=== PATIENT | female | born 1955 | race Caucasian/White ===

== ENCOUNTER 2018-09-21 19:25 | Inpatient (IN) | payer MEDICARE, OTHER ==
--- NOTE | 2018-09-21 20:39 | ED Physician Chart ---
ED Chief Complaint/HPI - Patient Information Date Seen:: 09/21/18 Time Seen:: 20:36 Chief Complaint:: agitation History of Present Illness:: 63 yr old bf from [facility] with esrd htn gerd gen weakness with agiation Allergies:: Allergies Allergy/AdvReac Type Severity Reaction Status Date / Time chocolate flavor Allergy Verified 09/21/18 20:33 Penicillins [PCN] Allergy Verified 09/21/18 20:33 ED Review of Systems - Review of Systems General/Constitutional: No fever, No chills, No weight loss, No weakness, No diaphoresis, No edema, No loss of appetite Skin: No skin lesions, No rash, No bruising Head: No headache, No light-headedness Eyes: No loss of vision, No pain, No diplopia ENT: No earache, No nasal drainage, No sore throat, No tinnitus Neck: No neck pain, No swelling, No thyromegaly, No stiffness, No mass noted Cardio Vascular: No chest pain, No palpitations, No PND, No orthopnea, No edema Pulmonary: No SOB, No cough, No sputum, No wheezing GI: No nausea, No vomiting, No diarrhea, No pain, No melena, No hematochezia, No constipation, No hematemesis G/U: No dysuria, No frequency, No hematuria Musculoskeletal: No bone or joint pain, No back pain, No muscle pain Endocrine: No polyuria, No polydipsia Psychiatric: No prior psych history, No depression, No anxiety, No suicidal ideation Hematopoietic: No bruising, No lymphadenopathy Allergic/Immuno: No urticaria, No angioedema Neurological: No syncope, No focal symptoms, No weakness, No paresthesia, No headache, No seizure, No dizziness, No confusion, No vertigo ED Past Medical History - Past Medical History Past Medical History: HTN, PUD/GERD, ESRD ED Physical Exam - Physical Examination General/Constitutional: Awake, Well-developed, well-nourished, Alert, No distress, GCS 15, Non-toxic appearing, Ambulatory Head: Atraumatic Eyes: Lids, conjuctiva normal, PERRL, EOMI Skin: Nl inspection, No rash, No skin lesions, No ecchymosis, Well hydrated, No lymphadenopathy ENMT: External ears, nose nl, Nasal exam nl, Lips, teeth, gums nl Neck: Nontender, Full ROM w/o pain, No JVD, No nuchal rigidity, No bruit, No mass, No stridor Respiratory: Nl effort/Exclusion, Clear to Auscultation, No Wheeze/Rhonchi/Rales Cardio Vascular: RRR, No murmur, gallop, rubs, NL S1 S2 GI: No tenderness/rebounding/guarding, No organomegaly, No hernia, Normal BS's, Nondistended, No mass/bruits, No McBurney tenderness : No CVA tenderness Extremities: No tenderness or effusion, Full ROM, normal strength in all extremities, No edema, Normal digits & nails Neuro/Psych: Alert/oriented, DTR's symmetric, Normal sensory exam, Normal motor strength, Judgement/insight normal, Mood normal, Normal gait, No focal deficits Misc: Normal back, No paraspinal tenderness ED Assessment - Assessment General Assessment: psychosis agitation for aleida psych eval ED Septic Shock - . Is Septic Shock (SBP<90, OR Lactate>4 mmol\L) present?: No ED Reassessment (Disposition) - Reassessment Reassessment:: agitation psychosis - Diagnosis Diagnosis:: as above - Patient Disposition Discharge/Transfer:: Acute Care w/in this hosp Admitted to:: Med/Surg Condition at Disposition:: Stable
[2018-09-21 20:55] LABS: % BASOPHILS 0.6 % (0.0-2.0); % LYMPHOCYTES 26.9 % (20.0-50.0); % MONOCYTES 4.1 % (2.0-10.0); % NEUTROPHILS 63.4 % (40.0-80.0); BASOPHILE ABSOLUTE 0.1 Th/cumm (0-0.2); EOSINOPHILE ABSOLUTE 0.5 Th/cmm (0.1-0.4); HEMATOCRIT 41.7 % (41.0-60); HEMOGLOBIN 13.4 gm/dL (12-16); LYMPHOCYTE ABSOLUTE 2.6 Th/cmm (1.5-3.0); MEAN CELL VOLUME 91.3 fl (81-100); MEAN CORPUSCULAR HEMOGLOBIN 29.4 pg (27.0-31.0); MEAN CORPUSCULAR HGB CONC 32.2 pg (28.0-36.0); MEAN PLATELET VOLUME 7.3 fl; MONOCYTE ABSOLUTE 0.4 Th/cmm (0.3-1.0); NEUTROPHILE ABSOLUTE 6.1 Th/cmm (1.8-8.0); PLATELET COUNT 434 Th/cmm (150-400); RED BLOOD COUNT 4.56 Mil/cmm (3.80-5.10); RED CELL DISTRIBUTION WIDTH 13.3 % (11.5-20.0); WHITE BLOOD COUNT 9.7 Th/cmm (4.8-10.8)
[2018-09-21 21:09] LABS: ALB/GLOB RATIO 1.1 (1.0-1.8); ALBUMIN 3.8 gm/dL (3.7-5.3); ALKALINE PHOSPHATASE 74 U/L (34-104); ANION GAP 12.4 (7.0-16.0); BILIRUBIN,TOTAL 0.4 mg/dL (0.3-1.0); BUN - UREA NITROGEN 15 mg/dL (7-25); CALCIUM SERUM 9.5 mg/dL (8.6-10.3); CHLORIDE 103 mEq/L (98-107); CREATININE - SERUM 0.7 mg/dL (0.6-1.2); GFR AFRICAN-AMERICAN > 60.0 ml/min (>90); GFR NON AFRICAN-AMERICAN > 60.0 ml/min; GLUCOSE 224 mg/dL (70-105); POTASSIUM SERUM 3.4 mEq/L (3.5-5.1); SGOT 15 U/L (13-39); SGPT/ALT 19 U/L (7-52); SODIUM SERUM 139 mEq/L (136-145); TOTAL PROTEIN,SERUM 7.4 gm/dL (6.0-8.3)
[2018-09-21] MEDS ORDERED: Potassium Chloride 20 mEq ER Tab PO ONE ×2 (21:57→22:03)
[2018-09-21 23:13] VITALS: BP 146/78
[2018-09-21] MEDS ORDERED: Magnesium Hydroxide (MOM) 30 mL UDC PO PRN (23:52)
[2018-09-21] MEDS ORDERED: Promethazine DM 6.25/15mg-5mL 5 ML SYR PO PRN (23:52)
[2018-09-22] MEDS ORDERED: GLUCAGON HCl 1 MG KIT IM PRN (00:54)
[2018-09-22] MEDS ORDERED: Dextrose 50% 50 mL Abboject IVP PRN (00:54)
[2018-09-22] MEDS: INSULIN LISPRO SLIDING SCALE 100 UNITS/ML UNIT SUBQ SCH ×2 (06:37→16:57)
[2018-09-22] MEDS: Pantoprazole 40 mg EC Tab PO SCH (06:38)
[2018-09-22 08:11] LABS: CHOLESTEROL 191 mg/dL (<200); HDL -HIGH DENSITY LIPOPROTEIN 42 mg/dL (23-92); TRIGLYCERIDES 88 mg/dL (<150)
[2018-09-22] MEDS: Multivitamin w/ Minerals Tab PO SCH (08:30)
[2018-09-22] MEDS: Aspirin 81mg Chewable Tab PO SCH (08:31)
--- NOTE | 2018-09-23 00:54 | Psychiatric Evaluation ---
DATE OF SERVICE: 09/21/2018 IDENTIFYING DATA: The patient is a 63-year-old -[place] woman, resident of [facility]. Information obtained directly interviewing the patient as well as reviewing the admission papers. CHIEF COMPLAINT: "I don't know why they brought me in here. I need to go back". HISTORY OF PRESENT ILLNESS: This patient is a 63-year-old woman reported to have been very depressed and getting easily irritable and angry. During the interview, the patient has been doing the same thing. The patient is not providing much of information stating that there is no reason for me to talk to her and then I need to get her back to the facility right away. PAST PSYCHIATRIC HISTORY: Details are not known. MEDICAL AND PHYSICAL EXAMINATION: Requested to be done by Dr. Hurtado. SUBSTANCE ABUSE HISTORY: None. PHYSICAL OR SEXUAL ABUSE HISTORY: None. LEGAL PROBLEMS: None at this time. MENTAL STATUS EXAMINATION: The patient is a 63-year-old, looking her stated age, superficially cooperative. Eye contact is poor. Mood is noted to be irritable. Affect is constricted. Insight and judgment at this time are noted to still impaired. Impulse control is noted to be limited. Coping skills are noted to be limited. The patient has been having difficult time to cope with the stress. The patient has been having feelings of frustration. The patient has not been able to contract for safety at this time. The patient denies active hallucinations or delusions are noted. DIAGNOSTIC IMPRESSION: AXIS I: Major depressive disorder, first episode and moderate. AXIS II: None. AXIS III: As per Dr. Hurtado. IMMEDIATE TREATMENT PLAN: The patient is going to be observed on inpatient unit, provided with supportive psychotherapy. The patient is going to be closely monitored. I encouraged to verbalize the concerns rather than to act out. Once stabilized, the patient is going to be discharged to [facility] to be followed up on an outpatient basis. [facility]# [id number]
--- NOTE | 2018-09-23 03:43 | History & Physical ---
ADMIT DATE: 09/22/2018 REASON FOR ADMISSION: Psychiatric disorder. HISTORY OF PRESENT ILLNESS: This is a 63-year-old female with underlying history of diabetes, hypertension, GERD, dementia and mental disorder admitted to the [facility] for underlying psychiatric illnesses by Dr. Borjas. Dr. Borjas requested medical H and P on this patient. The patient denies any current medical complaints or concerns. PAST MEDICAL HISTORY: As per HPI. PAST SURGICAL HISTORY: No significant past surgeries reported. FAMILY HISTORY: Unknown. SOCIAL HISTORY: The patient ____. No reported alcohol, tobacco or street drug use. CURRENT MEDICATIONS: As per medication reconciliation. ALLERGIES: PENICILLIN. REVIEW OF SYSTEMS: As per HPI, 12-point system is negative. PHYSICAL EXAMINATION: VITAL SIGNS: Temperature 97.1, pulse 90, respiration 19, blood pressure 128/93 and O2 97% on room air. Pain 0/10. HEENT: Unremarkable. HEART: S1 and S2 normal. LUNGS: Clear to auscultation bilaterally. ABDOMEN: Soft and nontender. No guarding. NEUROLOGIC: ____. AVAILABLE LABORATORY DATA: Reviewed. ASSESSMENT: 1. Diabetes. 2. Hypertension. 3. Gastroesophageal reflux disease. 4. Dementia. 5. Diabetes mellitus. PLAN: Monitor blood sugars. Continue diabetic medications. Losartan and Coreg will be given. Monitor blood pressure. Continue blood pressure medications. Psych management per psychiatrist. The patient is medically stable to proceed to [facility]. Thank you Dr. Borjas for allowing us to participate in the care of this patient. [facility]# [id number]
[2018-09-23] MEDS: Pantoprazole 40 mg EC Tab PO SCH (06:38)
[2018-09-23] MEDS: INSULIN LISPRO SLIDING SCALE 100 UNITS/ML UNIT SUBQ SCH ×2 (06:49→16:37)
[2018-09-23] MEDS: Multivitamin w/ Minerals Tab PO SCH (08:46)
[2018-09-23] MEDS: Aspirin 81mg Chewable Tab PO SCH (08:46)
--- NOTE | 2018-09-24 02:44 | Progress Notes ---
DATE: 09/23/2018 SUBJECTIVE: Staff was spoken to. The patient is interviewed. Mood is noted to be irritable. Affect is constricted. Insight and judgment are noted to be still impaired. Impulse control is noted to be poor. The patient is screaming and yelling, stating that she should not be in here. She should be back to her facility. The patient has been placed on low-dose of an antidepressant medication Seroquel. ASSESSMENT: The patient is still impulsive. PLAN: To continue the patient with supportive therapy. I encouraged the patient to verbalize the concerns rather than to act out. [facility]# [id number]
[2018-09-24] MEDS: Pantoprazole 40 mg EC Tab PO SCH (06:57)
[2018-09-24] MEDS: INSULIN LISPRO SLIDING SCALE 100 UNITS/ML UNIT SUBQ SCH ×2 (07:00→17:08)
[2018-09-24] MEDS: Escitalopram Oxalate 5 mg Tab PO SCH (08:38)
[2018-09-24] MEDS: Aspirin 81mg Chewable Tab PO SCH (08:38)
[2018-09-24] MEDS: Multivitamin w/ Minerals Tab PO SCH (08:38)
--- NOTE | 2018-09-24 23:29 | Progress Notes ---
DATE: 09/24/2018 SUBJECTIVE: Staff was spoken to. The patient is interviewed. Mood is noted to be irritable. Affect is constricted. Insight and judgment are noted to be still impaired. Impulse control is noted to be poor. The patient is getting easily frustrated and agitated. The patient is currently on escitalopram 5 mg in the morning and Seroquel is being given at 12.5 mg. PLAN: To increase the dose on the Seroquel to 25 mg at bedtime and continue the Lexapro and follow the patient with the supportive therapy. Please note that the patient is not ready to be discharged to a lower level of care yet. JOB# [id number]
[2018-09-25] MEDS: INSULIN LISPRO SLIDING SCALE 100 UNITS/ML UNIT SUBQ SCH ×2 (06:40→17:16)
[2018-09-25] MEDS: Pantoprazole 40 mg EC Tab PO SCH (06:46)
[2018-09-25] MEDS: Escitalopram Oxalate 5 mg Tab PO SCH (08:42)
[2018-09-25] MEDS: Aspirin 81mg Chewable Tab PO SCH (08:43)
[2018-09-25] MEDS: Multivitamin w/ Minerals Tab PO SCH (08:43)
--- NOTE | 2018-09-25 08:55 | Consultation ---
DATE OF CONSULTATION: 09/23/2018 REFERRING PHYSICIAN: Lyndsey Redmond MD TYPE OF CONSULTATION: PSYCHOLOGY. HISTORY OF PRESENT ILLNESS: The patient is a 63-year-old female. The patient is a resident of [facility]. The following is by record review and by the patient's self-report. Upon interview, the patient states that she does not know why she is in the hospital and wants to return to her placement immediately. She is demanding discharge. The patient is getting easily irritated and angry. Staff at the patient's facility reports the patient had been very depressed as well as irritable and frustrated with poor redirectability. The patient is answering questions very minimally in a yes or no fashion and is easily frustrated. PAST MEDICAL HISTORY: Please see history and physical by Dr. Hurtado. PAST PSYCHIATRIC HISTORY: Records are unavailable. Details are unknown. SUBSTANCE ABUSE HISTORY: The patient declined to answer these questions. PSYCHOSOCIAL HISTORY: The patient did not answer the questions about occupational or educational history. The patient states that she is a Christian and that she is . The patient did not answer questions about whether she has any children. The patient states that her sister, Cyndi is involved in her care. The patient denied any history of physical or sexual abuse. The patient denies any current legal problems. The patient is demanding to return to her placement. MENTAL STATUS EXAMINATION: The patient appears to be her stated age. Attitude is superficially cooperative. Eye contact is poor. Speech is loud. Mood is irritable. Affect is constricted. Thought process shows to be confused. The patient denied any suicidal ideation, plan, or intention. She denies any auditory or visual hallucinations. The patient's behavior has been emotionally volatile on the unit and difficult to redirect. Impulse control is inadequate. Concentration is poor. The patient did not participate in the memory assessment. Sensorium is alert and oriented to self and place only. The patient did not participate in the interpretation of proverbs. Insight is poor and judgment is compromised. DIAGNOSTIC IMPRESSION: AXIS I: Major depressive disorder, first episode, moderate. AXIS II: Deferred. AXIS III: Per Dr. Hurtado. TREATMENT PLAN: The patient has been seen by Dr. Redmond for psychiatric evaluation and for the management of the patient's psychotropic medications. We will provide supportive psychotherapy to include de-escalation and conflict resolution as well as problem solving. We will encourage the patient to demonstrate emotional and self-regulation and to verbalize her concerns versus acting out verbally. We will provide cognitive behavioral therapy to reduce the patient's depression. We will provide coping strategies for phase of life issues. We will offer the patient the opportunity to verbally contract for safety as well. We will provide motivational enhancement for the patient to become compliant and stay compliant with all aspects of her care and treatment. We will follow up in 2 days to continue the present treatment. Thank you, Dr. Redmond for this consult and the opportunity to participate in this patient's care. JOB# [id number] IRIS
--- NOTE | 2018-09-26 01:34 | Progress Notes ---
DATE: 09/25/2018 PSYCHIATRIC PROGRESS NOTE SUBJECTIVE: Staff was spoken to. The patient is interviewed. Mood is noted to be irritable. Affect is constricted. Insight and judgment are noted to be still impaired. Impulse control is noted to be limited. Coping skills are also noted to be limited. The patient has been having poor coping skills and is stating there is nothing wrong with her, I need to send her back to the custodial facility. ASSESSMENT: The patient is still depressed and paranoid. PLAN: To continue the patient with the current medications. I encouraged the patient to verbalize the concerns rather than to act out. JOB# [id number]
[2018-09-26] MEDS: Pantoprazole 40 mg EC Tab PO SCH (06:50)
[2018-09-26] MEDS: INSULIN LISPRO SLIDING SCALE 100 UNITS/ML UNIT SUBQ SCH ×2 (06:55→16:48)
[2018-09-26] MEDS: Escitalopram Oxalate 5 mg Tab PO SCH (08:12)
[2018-09-26] MEDS: Multivitamin w/ Minerals Tab PO SCH (08:12)
[2018-09-26] MEDS: Aspirin 81mg Chewable Tab PO SCH (08:14)
--- NOTE | 2018-09-26 19:46 | Progress Notes ---
DATE: 09/26/2018 PSYCHOLOGY PROGRESS NOTE SUBJECTIVE: The patient is seen and is interviewed. Case is discussed with staff. The patient presents as loud and is demanding to be discharged. The patient states that she needs to see the psychiatrist and for him to discharge her immediately and that she cannot stand being in the hospital. Staff reports the patient's impulse control is poor and that the patient continues to have a poor appetite. The patient continued to state that there is nothing wrong with her. OBJECTIVE: Mood is irritable. Affect is broad and animated. Thought process shows to be confused. The patient denied any hallucinations or delusions. The patient's behavior has been intermittently compliant with her care. ASSESSMENT AND PLAN: The patient's depression persists. There is some paranoid ideation present. We provided reality orientation, differentiation and integration. We provided remotivation for the patient to become compliant and stay compliant with all aspects of her care and treatment. We provided coping strategies for phase of life issues as well as for chronic severe mental illness. We encouraged the patient to demonstrate emotional and self-regulation and to verbalize her concerns versus acting out. We will follow up in 2 days to continue the present treatment if the patient remains admitted on the unit. JOB# [id number] IRIS
--- NOTE | 2018-09-27 00:47 | Progress Notes ---
DATE: 09/26/2018 PSYCHIATRIC PROGRESS NOTE SUBJECTIVE: Staff was spoken to. The patient is interviewed. Mood is noted to be dysphoric. Insight and judgment are noted to be still impaired. Impulse control is noted to be limited. The patient is screaming and yelling and stating that she needs to be out of here. The patient's sleep is noted to be poor. The patient's coping skills are noted to be very poor. The patient has been closely monitored for her sugar, it is coming anywhere from 174-234. Rest of the labs are noted to be within normal limits except the potassium being low. ASSESSMENT: The patient is still depressed and impulsive. PLAN: To continue the patient with the supportive therapy and followup. [facility]# [id number]
[2018-09-27] MEDS: INSULIN LISPRO SLIDING SCALE 100 UNITS/ML UNIT SUBQ SCH ×2 (06:37→17:04)
[2018-09-27] MEDS: Pantoprazole 40 mg EC Tab PO SCH (06:54)
[2018-09-27] MEDS: Multivitamin w/ Minerals Tab PO SCH (09:12)
[2018-09-27] MEDS: Escitalopram Oxalate 5 mg Tab PO SCH (09:13)
[2018-09-27] MEDS: Aspirin 81mg Chewable Tab PO SCH (09:14)
--- NOTE | 2018-09-28 03:17 | Progress Notes ---
DATE: 09/27/2018 SUBJECTIVE: Staff was spoken to. The patient is interviewed. Mood is noted to be irritable. Affect is constricted. The patient has paranoia, but denies any command hallucinations. Insight and judgment are noted to be still impaired. The patient is getting easily frustrated, angry and upset. The patient is currently on escitalopram 5 mg, which is going to be increased to 10 mg in the morning and the patient is going to be continued on the Seroquel that she has been taking. ASSESSMENT: The patient is still having depression symptoms and insomnia. PLAN: To continue the patient with the supportive therapy. I encouraged the patient to verbalize the concerns rather than to act out. [facility]# [id number]
[2018-09-28] MEDS: INSULIN LISPRO SLIDING SCALE 100 UNITS/ML UNIT SUBQ SCH ×2 (06:39→17:14)
[2018-09-28] MEDS: Pantoprazole 40 mg EC Tab PO SCH (06:39)
[2018-09-28] MEDS: Aspirin 81mg Chewable Tab PO SCH (08:50)
[2018-09-28] MEDS: Multivitamin w/ Minerals Tab PO SCH (08:50)
--- NOTE | 2018-09-28 22:13 | General Progress Note ---
Objective - Results Result Diagrams: 09/21/18 20:40 09/21/18 20:40 Recent Labs: Laboratory Last Values WBC 9.7 Th/cmm (4.8-10.8) 09/21/18 20:40 RBC 4.56 Mil/cmm (3.80-5.10) 09/21/18 20:40 Hgb 13.4 gm/dL (12-16) 09/21/18 20:40 Hct 41.7 % (41.0-60) 09/21/18 20:40 MCV 91.3 fl (81-100) 09/21/18 20:40 MCH 29.4 pg (27.0-31.0) 09/21/18 20:40 MCHC Differential 32.2 pg (28.0-36.0) 09/21/18 20:40 RDW 13.3 % (11.5-20.0) 09/21/18 20:40 Plt Count 434 Th/cmm (150-400) H 09/21/18 20:40 MPV 7.3 fl 09/21/18 20:40 Neutrophils % 63.4 % (40.0-80.0) 09/21/18 20:40 Lymphocytes % 26.9 % (20.0-50.0) 09/21/18 20:40 Monocytes % 4.1 % (2.0-10.0) 09/21/18 20:40 Eosinophils % 5.0 % (0.0-5.0) 09/21/18 20:40 Basophils % 0.6 % (0.0-2.0) 09/21/18 20:40 Sodium 139 mEq/L (136-145) 09/21/18 20:40 Potassium 3.4 mEq/L (3.5-5.1) L 09/21/18 20:40 Chloride 103 mEq/L (98-107) 09/21/18 20:40 Carbon Dioxide 27.0 mEq/L (21.0-31.0) 09/21/18 20:40 Anion Gap 12.4 (7.0-16.0) 09/21/18 20:40 BUN 15 mg/dL (7-25) 09/21/18 20:40 Creatinine 0.7 mg/dL (0.6-1.2) 09/21/18 20:40 Est GFR ( Amer) > 60.0 ml/min (>90) 09/21/18 20:40 Est GFR (Non-Af Amer) > 60.0 ml/min 09/21/18 20:40 BUN/Creatinine Ratio 21.4 09/21/18 20:40 Glucose 224 mg/dL (70-105) H 09/21/18 20:40 POC Glucose 174 MG/DL (70 - 105) H 09/26/18 05:48 Calcium 9.5 mg/dL (8.6-10.3) 09/21/18 20:40 Total Bilirubin 0.4 mg/dL (0.3-1.0) 09/21/18 20:40 AST 15 U/L (13-39) 09/21/18 20:40 ALT 19 U/L (7-52) 09/21/18 20:40 Alkaline Phosphatase 74 U/L (34-104) 09/21/18 20:40 Total Protein 7.4 gm/dL (6.0-8.3) 09/21/18 20:40 Albumin 3.8 gm/dL (3.7-5.3) 09/21/18 20:40 Globulin 3.6 gm/dL 09/21/18 20:40 Albumin/Globulin Ratio 1.1 (1.0-1.8) 09/21/18 20:40 Triglycerides 88 mg/dL (<150) 09/21/18 20:40 Cholesterol 191 mg/dL (<200) 09/21/18 20:40 LDL Cholesterol Direct 135 mg/dL (75-193) 09/21/18 20:40 HDL Cholesterol 42 mg/dL (23-92) 09/21/18 20:40 TSH 1.38 uIU/ml (0.34-5.60) 09/21/18 20:40 RPR NONREACTIVE (NONREACTIVE) 09/21/18 20:40 - Physical Exam Vitals and I&O: Vital Signs Temp 97.6 F 09/28/18 20:00 Pulse 79 09/28/18 20:00 Resp 18 09/28/18 20:00 BP 138/91 09/28/18 20:00 Pulse Ox 99 09/28/18 20:00 Intake & Output 09/28/18 09/28/18 09/29/18 06:59 18:59 06:59 Intake Total 240 1200 Balance 240 1200 Intake: Oral 240 1200 Other: # Voids 2 # Bowel Movements 0 3 Active Medications: Current Medications Acetaminophen (Tylenol) 650 mg PO Q4HR PRN PRN Reason: Pain or Fever >101 Stop: 11/20/18 23:51 Ascorbic Acid (Vitamin C) 500 mg PO DAILY [facility] Stop: 11/21/18 08:59 Last Admin: 09/28/18 08:50 Dose: 500 mg Aspirin (Aspirin Chewable) 81 mg PO DAILY [facility] Stop: 11/21/18 08:59 Last Admin: 09/28/18 08:50 Dose: 81 mg Dextrose (D50w) 50 ml IVP PRN PRN PRN Reason: Blood Glucose less than 70 Stop: 11/21/18 00:53 Dextrose (Glutose 40%) 18.75 gm PO PRN PRN PRN Reason: Blood Glucose less than 70 Stop: 11/21/18 00:53 Donepezil HCl (Aricept) 5 mg PO HS [facility] Stop: 11/21/18 20:59 Last Admin: 09/28/18 20:18 Dose: 5 mg Escitalopram Oxalate (Lexapro) 10 mg PO DAILY [facility]; Protocol Stop: 11/27/18 08:59 Last Admin: 09/28/18 08:50 Dose: 10 mg Famotidine (Pepcid) 20 mg PO Q12HR [facility] Stop: 11/21/18 08:59 Last Admin: 09/28/18 20:18 Dose: 20 mg Glipizide (Glucotrol) 5 mg PO QAM [facility] Stop: 11/21/18 08:59 Last Admin: 09/28/18 08:50 Dose: 5 mg Glucagon (Glucagen) 1 mg IM PRN PRN PRN Reason: Blood Glucose less than 70 Stop: 11/21/18 00:53 Ibuprofen (Motrin) 400 mg PO Q6H PRN PRN Reason: Pain (Mild) Stop: 11/20/18 23:51 Insulin Human Lispro (Humalog Insulin Sliding Scale) 0 units SUBQ BIDAC [facility]; Protocol Stop: 11/21/18 07:29 Last Admin: 09/28/18 17:14 Dose: Not Given Lisinopril (Zestril) 2.5 mg PO DAILY [facility] Stop: 11/21/18 08:59 Last Admin: 09/28/18 08:52 Dose: 2.5 mg Lorazepam (Ativan) 0.5 mg PO Q4HR PRN; Protocol PRN Reason: Anxiety Stop: 10/21/18 23:12 Magnesium Hydroxide (Milk Of Magnesia) 30 ml PO DAILY PRN PRN Reason: Constipation Stop: 11/20/18 23:51 Metformin HCl (Glucophage) 500 mg PO BIDWM [facility] Stop: 11/21/18 07:59 Last Admin: 09/28/18 17:25 Dose: 500 mg Metoprolol Tartrate (Lopressor) 25 mg PO BID [facility] Stop: 11/21/18 08:59 Last Admin: 09/28/18 17:25 Dose: 25 mg Nitroglycerin (Nitrostat) 0.4 mg SL Q5MIN PRN PRN Reason: Chest Pain Stop: 11/20/18 23:51 Ondansetron HCl (Zofran Odt) 4 mg PO Q4H PRN PRN Reason: Nausea Stop: 11/20/18 23:51 Pantoprazole Sodium (Protonix) 40 mg PO QDAC [facility] Stop: 11/21/18 07:29 Last Admin: 09/28/18 06:39 Dose: 40 mg Promethazine HCl/Dextromethorphan (Phenergan Dm 6.25/15mg-5 Ml) 10 ml PO Q6H PRN PRN Reason: Cough Stop: 11/20/18 23:51 Quetiapine Fumarate (Seroquel) 25 mg PO HS [facility]; Protocol Stop: 11/23/18 20:59 Last Admin: 09/28/18 20:18 Dose: 25 mg Zolpidem Tartrate (Ambien) 5 mg PO HS PRN PRN Reason: Insomnia Stop: 11/20/18 23:12 Nutritional Asmnt/Malnutr-PDOC - Dietary Evaluation Malnutrition Findings (Please click <Entered> for more info): Nutritional Asmnt/Malnutrition Start: 09/26/18 15: 05 Text: Status: Complete Freq: Protocol: Document 09/26/18 15:05 LCHENG (Rec: 09/26/18 15:29 [id number]) Nutritional Asmnt/Malnutrition Patient General Information Nutritional Screening Moderate Risk Diagnosis psychosis Pertinent Medical Hx/Surgical Hx DM, HTN, GERD, dementia, mental disorder Subjective Information Pt seen eating in bed at time of visit, confused. Per EMR, PO intake 1005. Current Diet Order/ Nutrition Support soft, low carb 45gm, DONALD Pertinent Medications vit C, pepcid, glucotrol, humalog, glucopahge, protonix, seroquel Pertinent Labs 09/21 K 3.4, Glucose 22s4 09/24 POC 183 09/26 POC 174 Nutritional Hx/Data Height 1.7 m Height (Calculated Centimeters) 170.2 Current Weight (lbs) 113.398 kg Weight (Calculated Kilograms) 113.4 Weight (Calculated Grams) 669630.1 [place] Body Weight 135 Body Mass Index (BMI) 39.1 Weight Status Obese GI Symptoms GI Symptoms None Last BM 09/25 Difficult in: None Skin Integrity/Comment: zachariah de paz 14 Current %PO Good (75-100%) Estimated Nutritional Goals BEE in Kcals: Adj wt of IBW Calories/Kcals/Kg 23-27 Kcals Calculated 2460-2685 Protein: Adj wt of IBW Protein g/k Protein Calculated 74 Fluid: ml 1702-1998ml (1ml/kcal) Nutritional Problem 1. Problem Problem altered nutrition related labs Etiology hyperglycemia and hx of DM Signs/Symptoms: glucose 224, POC 174-183 Malnutrition Alert Is there a minimum of two criteria No selected? Query Text:Check all the applicable criteria. A minimum of two criteria are recommended for diagnosis of either severe or non-severe malnutrition. Malnutrition Related to Morbid Obesity Malnutrition related to morbid obesity No Intervention/Recommendation Comments 1. Continue with [facility] diet as ordered. 2. Monitor PO intake, wt, labs and skin integrity 3. F/U as low risk in 7 days Expected Outcomes/Goals Expected Outcomes/Goals 1. PO intake to meet at least 75% of nutritional needs. 2. Wt stability, skin to remain intact, labs to approach WNL.
--- NOTE | 2018-09-29 00:37 | Progress Notes ---
DATE: 09/28/2018 PSYCHIATRIC PROGRESS NOTE SUBJECTIVE: Staff was spoken to. The patient is interviewed. Mood is noted to be anxious. The patient is stating that she is frustrated for being in here and she needs to get back to her facility. Coping skills are noted to be still poor. The patient is stating that there is nothing wrong with her, but the patient is getting easily frustrated, tends to scream and yell. The patient is currently on Lexapro and Seroquel and has been able to tolerate the medication. ASSESSMENT: The patient is still depressed. PLAN: To continue the patient with the supportive therapy and followup. JOB# [id number]
--- NOTE | 2018-09-29 05:33 | Progress Notes ---
DATE: 09/28/2018 PSYCHOLOGY PROGRESS NOTE SUBJECTIVE: The patient is seen and is interviewed. Case is discussed with staff. The patient presents as loud and somewhat demanding, i.e. to be discharged. There is some evidence of paranoid ideation. The patient is easily frustrated and is hyperverbal and not responding to this health technical writer's clinical questions. OBJECTIVE: Mood is irritable and depressed. Affect is broad and animated. Thought process shows to be confused. The patient denied any auditory or visual hallucinations or any delusions. The patient is easily frustrated and is demanding towards staff; however, the patient is taking her p.o. medications. ASSESSMENT AND PLAN: The patient continues to present as depressed and complains of poor sleep. We provided supportive psychotherapy to include coping strategies for phase of life issues. Remotivation for the patient to become compliant and stay compliant with her care and treatment. We provided cognitive behavioral therapy to reduce the patient's depression. We encouraged the patient to demonstrate emotional and self-regulation and to verbalize her concerns versus verbally acting out and to follow through with staff direction. We will follow up in 2 days if the patient remains admitted on the unit. JOB# [id number] IRIS
[2018-09-29] MEDS: Pantoprazole 40 mg EC Tab PO SCH (06:59)
[2018-09-29] MEDS: INSULIN LISPRO SLIDING SCALE 100 UNITS/ML UNIT SUBQ SCH (06:59)
[2018-09-29] MEDS: Aspirin 81mg Chewable Tab PO SCH (09:06)
[2018-09-29] MEDS: Multivitamin w/ Minerals Tab PO SCH (09:06)
--- NOTE | 2018-09-29 19:06 | Discharge Summary ---
DATE OF DISCHARGE: 09/29/2018 IDENTIFYING DATA: The patient is a 63-year-old woman, resident of [facility]. CHIEF COMPLAINT: "I don't know why I have to be here. I need to go back." DIAGNOSES AT THE TIME OF ADMISSION: AXIS I: Major depressive disorder, first episode and moderate. AXIS II: None. AXIS III: As per Dr. Hurtado. HISTORY OF PRESENT ILLNESS: Please refer the 09/23/2018 dictation done by me. Physical examination was done by Dr. Hurtado and is noted to be significant for moderate obesity, diabetes, hypertension, and gastroesophageal reflux disease. HOSPITAL COURSE AND RESPONSE TO TREATMENT: The blood work that has been ordered has been reviewed by Dr. Hurtado. The patient has been closely monitored, provided with supportive psychotherapy. The patient has been started on the citalopram that was gradually increased to 10 mg and the patient has been closely monitored, Seroquel 25 mg has been given at nighttime to help with the agitation and paranoia. The patient started to do fairly well and the patient was discharged on 09/29/2018 with recommendation that she is going to be seeking treatment on an outpatient basis. MENTAL STATUS EXAMINATION AT THE TIME OF DISCHARGE: The patient's mood is noted to be less irritable. Affect is appropriate. Not suicidal or homicidal. Insight and judgment are noted to be fair. Impulse control is also noted to be fair. DIAGNOSES AT THE TIME OF DISCHARGE: AXIS I: Major depressive disorder, single episode. AXIS II: None. AXIS III: Hypertension, diabetes mellitus, obesity, and hypercholesterolemia. AFTERCARE PLAN: [facility] be followed up on an outpatient basis. [facility]# [id number]
== END 2018-09-29 15:52 | DRG 885 ==
LOC: ER 19:25 → GERO 22:10
DX: F32.1 Major depressive disorder, single episode, moderate (principal); N18.9 Chronic kidney disease, unspecified; K21.9 Gastro-esophageal reflux disease without esophagitis; F03.90 Unspecified dementia, unspecified severity, without behavioral disturbance, psychotic disturbance, mood disturbance, and anxiety; G83.14 Monoplegia of lower limb affecting left nondominant side; I12.9 Hypertensive chronic kidney disease with stage 1 through stage 4 chronic kidney disease, or unspecified chronic kidney disease; E11.22 Type 2 diabetes mellitus with diabetic chronic kidney disease; F29 Unspecified psychosis not due to a substance or known physiological condition; E66.9 Obesity, unspecified; E78.00 Pure hypercholesterolemia, unspecified; Z68.39 Body mass index [BMI] 39.0-39.9, adult; Z88.0 Allergy status to penicillin; Z91.02 Food additives allergy status
CPT/HCPCS: 36415-UA; 80053-TC; 80061-TC; 82948-90; 83036-90; 84443-TC; 85025-TC; 86592-TC; 93005; Z7610